=== PATIENT | female | born 1955 | race Two or more races ===

== ENCOUNTER 2021-03-26 03:55 | Inpatient (IN) | payer OTHER ==
[~2021-03-26] VITALS: Ht 152.4 cm; Wt 95.2 kg
[2021-03-26 05:35] LABS: Albumin 2.6 g/dL (3.4-5.0); Calcium 8.2 mg/dL (8.5-10.1); Magnesium 2.6 mg/dL (1.6-2.6); Potassium 3.8 mmol/L (3.5-5.1)
[2021-03-26 05:41] LABS: BUN/Creatinine Ratio 20.2; Bilirubin, Total 0.3 mg/dL (0.2-1.0); Total Protein 6.7 g/dL (6.4-8.2)
[2021-03-26 05:47] LABS: Basophils # (auto) 0.1 10 ^3/uL (0-0.2); Basophils % (auto) 0.6 % (0.0-2.0); Eosinophils # (auto) 0.1 10 ^3/uL (0-0.8); Eosinophils % (auto) 1.3 % (0.0-7.0); Hematocrit 32.5 % (36.0-46.0); Hemoglobin 10.5 g/dL (12.2-16.2); Lymphocytes # (auto) 0.8 10 ^3/uL (0.4-5.4); Lymphocytes % (auto) 9.3 % (10.0-50.0); Mean Corpuscular Hemoglobin 28.1 pg (28.0-32.0); Mean Corpuscular Hgb Conc. 32.4 g/dL (32.0-36.0); Mean Corpuscular Volume 86.9 fL (80.0-100.0); Monocytes # (auto) 0.5 10 ^3/uL (0-1.3); Monocytes % (auto) 5.1 % (0.0-12.0); Neutrophils # (auto) 7.6 10 ^3/uL (1.6-8.6); Neutrophils % (auto) 83.7 % (37.0-80.0); Red Blood Cells 3.74 10^6/uL (4.0-5.20); Red Cell Distribution Width 14.3 % (11.8-14.3)
[2021-03-26] MEDS ORDERED: DOPamine 1600MCG/ML D5W 250 ML IV ONE (07:30)
[2021-03-26] MEDS ORDERED: SODIUM CHLORIDE 0.9% 1,000 ML IV ONE (07:30)
[2021-03-26 07:59] LABS: Urine Bacteria FEW /hpf (None Seen); Urine Blood Negative /uL (Negative); Urine Hyaline Cast FEW /lpf (0 - 2); Urine Mucus FEW (None Seen); Urine Specific Gravity 1.014 (1.001-1.035); Urine WBC 36 /hpf (0 - 5)
[2021-03-26 08:21] LABS: Alcohol, Urine < 3.0 mg/dL (0-10); Amphetamine Screen, Urine NEGATIVE (NEGATIVE); Barbiturate Scree,Urine NEGATIVE (NEGATIVE); Benzodiazephine Screen, Urine NEGATIVE (NEGATIVE); Cannabinoid Screen, Urine POSITIVE (NEGATIVE); Cocaine Screen, Urine NEGATIVE (NEGATIVE); Phencyclidine Screen, Urine NEGATIVE (NEGATIVE)
[2021-03-26 08:28] LABS: Opiate Scree,Urine NEGATIVE (NEGATIVE)
[2021-03-26] MEDS ORDERED: FUROSEMIDE 100 MG/10ML VIAL IV ONE (13:00)
[2021-03-26] MEDS ORDERED: NITROGLYCERIN 0.4 MG SL TAB SL PRN ×2 (13:00→13:45)
[2021-03-26] MEDS ORDERED: MORPHINE SULFATE INJECTION 2 MG/ML SYRG IV PRN ×3 (13:00→13:45)
[2021-03-26] MEDS ORDERED: DOCUSATE SOD 100 MG CAP PO PRN (13:45)
[2021-03-26] MEDS ORDERED: FAMOTIDINE (10MG/ML) 2ML VL IV ONE (13:45)
[2021-03-26] MEDS ORDERED: diphenhdrAMINE HCL 25 MG CAP PO PRN (13:45)
[2021-03-26] MEDS ORDERED: HYDROcodone-ACET 5/325MG TAB PO PRN (13:45)
[2021-03-26] MEDS ORDERED: ALUM & MAG HYDROX-SIMETH LIQ(MAALOX) 30 ML PO PRN (13:45)
[2021-03-26] MEDS ORDERED: ENOXAPARIN SOD 40 MG/0.4 ML SYRINGE SC ONE (13:45)
[2021-03-26] MEDS ORDERED: IPRATROPIUM BROM 0.5 MG/2.5ML INH SOL NEB ONE (13:45)
[2021-03-26] MEDS ORDERED: DEXTROSE (50%) 50ML SYRG IV PRN (13:45)
[2021-03-26] MEDS ORDERED: LORazepam 0.5 MG TAB PO PRN (13:45)
[2021-03-26] MEDS ORDERED: BENAZEPRIL HCL 10 MG TAB PO ONE (13:45)
[2021-03-26] MEDS ORDERED: ALBUTEROL SULF 2.5 MG/0.5ML(0.5%) NEB SOLN NEB ONE (13:45)
[2021-03-26] MEDS ORDERED: ONDANSETRON HCL 4 MG/2 ML VIAL IV PRN (13:45)
[2021-03-26] MEDS ORDERED: levoFLOXacin 500MG 100 ML IV ONE (13:45)
[2021-03-26] MEDS ORDERED: ALBU108A5 INH (14:29)
[2021-03-26] MEDS ORDERED: FLUT250M2 IN (14:29)
[2021-03-26] MEDS ORDERED: LORA1TAB23 PO (14:37)
[2021-03-26 14:50] VITALS: BP 175/98
[2021-03-26 14:56] LABS: Cholesterol 151 mg/dL (< 200); HDL Cholesterol 86 mg/dL (40-59); LDL Cholesterol 55 mg/dL (< 100); Triglycerides 79 mg/dL (< 150)
[2021-03-26] MEDS ORDERED: ALBU0.08 NEB (14:59)
[2021-03-26] MEDS ORDERED: TOPI1CAP24 PO (15:02)
[2021-03-26] MEDS ORDERED: HYDR50CA2 PO (15:02)
[2021-03-26] MEDS ORDERED: PANT40T PO (15:02)
[2021-03-26] MEDS ORDERED: HYDR200T36 PO (15:02)
[2021-03-26] MEDS ORDERED: HYDR-4072 PO (15:02)
[2021-03-26] MEDS ORDERED: MECL1TAB42 PO (15:02)
[2021-03-26] MEDS ORDERED: AMLO-483 PO (15:05)
[2021-03-26] MEDS ORDERED: ALLO100T PO (15:05)
[2021-03-26] MEDS ORDERED: BENA40TA8 PO (15:05)
[2021-03-26] MEDS ORDERED: PARO30TA99 PO (15:05)
[2021-03-26] MEDS ORDERED: LEVE100020 PO (15:05)
[2021-03-26] MEDS ORDERED: FUR20T PO (15:05)
[2021-03-26] MEDS ORDERED: SIMV-8 PO (15:05)
[2021-03-26] MEDS ORDERED: AMIT1TAB41 PO (15:05)
[2021-03-26] MEDS ORDERED: OXYB10TA14 PO (15:05)
[2021-03-26] MEDS ORDERED: LEVO100T8 PO (15:05)
[2021-03-26] MEDS ORDERED: ATEN50TA PO (15:05)
[2021-03-26] MEDS ORDERED: OPTISON 3ml Vial for INJ IV ONE ×2 (15:26→15:30)
[2021-03-26] MEDS: methylPREDNISolone SOD SUCC 40 MG/ML VL IV SCH ×2 (16:09→21:37)
[2021-03-26] MEDS: SODIUM CHLOR 0.9% PF (SALINE LOCK) 10ML VIAL/SYR IV SCH ×2 (16:09→21:37)
[2021-03-26 17:00] VITALS: BP 156/93
[2021-03-26] MEDS: ACCU-CHEK COMFORT CURVE STRIP VI SCH ×2 (17:00→21:37)
[2021-03-26] MEDS: InsuLIN REG 1unit/0.01ml Soln (100units/ml) SC SCH ×2 (17:00→21:47)
[2021-03-26] MEDS: FUROSEMIDE 40 MG/4 ML VIAL IV SCH (18:00)
[2021-03-26] MEDS: IPRATROPIUM BROM 0.5 MG/2.5ML INH SOL NEB SCH ×2 (19:20→22:00)
[2021-03-26] MEDS: ALBUTEROL SULF 2.5 MG/0.5ML(0.5%) NEB SOLN NEB SCH ×2 (19:20→22:00)
[2021-03-26 20:35] VITALS: BP 171/71
[2021-03-26] MEDS: hydrALAZINE HCL 20 MG/ML VL IV PRN (20:36)
[2021-03-26] MEDS ORDERED: LEVE250T18 PO (21:14)
[2021-03-26] MEDS ORDERED: HYDR-4188 PO (21:14)
[2021-03-26] MEDS ORDERED: FESO8TAB PO (21:14)
[2021-03-26] MEDS: levETIRAcetam 500 MG TAB PO SCH (21:34)
[2021-03-26] MEDS: ATORVASTATIN 20 MG TAB PO SCH (21:35)
[2021-03-26] MEDS: AMITRIPTYLINE HCL 25 MG TAB PO SCH (21:36)
[2021-03-26] MEDS: FAMOTIDINE (10MG/ML) 2ML VL IV SCH (21:37)
[2021-03-27] VITALS (9 sets, daily range): BP systolic 124–161; BP diastolic 61–96
[2021-03-27] MEDS: IPRATROPIUM BROM 0.5 MG/2.5ML INH SOL NEB SCH ×2 (02:25→07:24)
[2021-03-27] MEDS: ALBUTEROL SULF 2.5 MG/0.5ML(0.5%) NEB SOLN NEB SCH ×2 (02:26→07:24)
[2021-03-27] MEDS: SODIUM CHLOR 0.9% PF (SALINE LOCK) 10ML VIAL/SYR IV SCH ×3 (05:52→21:52)
[2021-03-27] MEDS: FUROSEMIDE 40 MG/4 ML VIAL IV SCH ×2 (06:07→16:57)
[2021-03-27] MEDS: methylPREDNISolone SOD SUCC 40 MG/ML VL IV SCH (06:08)
[2021-03-27] MEDS: hydrALAZINE HCL 20 MG/ML VL IV PRN ×2 (06:08→12:43)
[2021-03-27] MEDS: InsuLIN REG 1unit/0.01ml Soln (100units/ml) SC SCH ×4 (06:30→21:52)
[2021-03-27] MEDS: ACCU-CHEK COMFORT CURVE STRIP VI SCH ×4 (06:31→21:45)
[2021-03-27 06:53] LABS: Basophils # (auto) 0 10 ^3/uL (0-0.2); Basophils % (auto) 0.3 % (0.0-2.0); Eosinophils # (auto) 0 10 ^3/uL (0-0.8); Hematocrit 36.9 % (36.0-46.0); Hemoglobin 11.9 g/dL (12.2-16.2); Lymphocytes # (auto) 0.4 10 ^3/uL (0.4-5.4); Mean Corpuscular Hemoglobin 28.1 pg (28.0-32.0); Mean Corpuscular Hgb Conc. 32.3 g/dL (32.0-36.0); Monocytes # (auto) 0.1 10 ^3/uL (0-1.3); Monocytes % (auto) 1.5 % (0.0-12.0); Neutrophils # (auto) 7.5 10 ^3/uL (1.6-8.6); Neutrophils % (auto) 93.2 % (37.0-80.0); Nucleated Red Blood Cells % 0.1 %; Red Blood Cells 4.24 10^6/uL (4.0-5.20); Red Cell Distribution Width 14.1 % (11.8-14.3); White Blood Cell 8.1 10^3/uL (4.4-10.8)
[2021-03-27] MEDS ORDERED: LEVOTHYROXINE SODIUM 100 MCG TAB PO SCH (07:00)
[2021-03-27 07:02] LABS: INR 1.12 (0.9-1.15); Partial Thromboplastin Time 30.1 sec (23.6-33.0)
[2021-03-27 07:10] LABS: Potassium 3.7 mmol/L (3.5-5.1)
[2021-03-27 07:23] LABS: Albumin 2.7 g/dL (3.4-5.0); BUN/Creatinine Ratio 19.3; Bilirubin, Total 0.4 mg/dL (0.2-1.0); Calcium 8.4 mg/dL (8.5-10.1); Magnesium 2.1 mg/dL (1.6-2.6); Phosphorus 3.5 mg/dL (2.5-4.90); Total Protein 7.5 g/dL (6.4-8.2); Uric Acid 5.4 mg/dL (2.6-6.0)
[2021-03-27] MEDS: FAMOTIDINE (10MG/ML) 2ML VL IV SCH (09:34)
[2021-03-27] MEDS: levETIRAcetam 500 MG TAB PO SCH ×2 (09:35→21:51)
[2021-03-27] MEDS: ASPirin 81 mg TAB PO SCH (09:35)
[2021-03-27] MEDS: ENOXAPARIN SOD 40 MG/0.4 ML SYRINGE SC SCH (09:40)
[2021-03-27] MEDS: levoFLOXacin 500MG 100 ML IV SCH (09:40)
[2021-03-27] MEDS ORDERED: BENAZEPRIL HCL 10 MG TAB PO SCH (10:00)
[2021-03-27] MEDS ORDERED: ALBUTEROL SULF 2.5 MG/0.5ML(0.5%) NEB SOLN NEB PRN (10:30)
[2021-03-27] MEDS ORDERED: hydrOXYchloroQUINE SULFATE 200 MG TAB PO ONE (11:15)
[2021-03-27] MEDS ORDERED: LIDOCAINE 2%HCL (LOCAL ANESTH.) INJ 20ML MDV ONE (13:40)
[2021-03-27] MEDS ORDERED: MIDAZOLAM HCL 2MG/2ML 2ml VIAL (1mg/ml) ONE (13:44)
[2021-03-27] MEDS ORDERED: HEPARIN SODIUM (PORCINE) 5000 UNITS/ML 1ML VIAL ONE (13:44)
[2021-03-27] MEDS ORDERED: VERAPAMIL 2.5MG/ML INJ 2ML VIAL IV ONE (13:44)
[2021-03-27] MEDS ORDERED: SODIUM CHL 0.9% 50 ML ONE (13:44)
[2021-03-27] MEDS ORDERED: fentaNYL CITRATE 100 MCG/2 ML VL ONE (13:44)
[2021-03-27] MEDS ORDERED: ANGIOMAX 250 MG VIAL IV ONE (13:44)
[2021-03-27] MEDS ORDERED: IODIXANOL 320MG/ML 100ML BTL IV ONE (14:10)
[2021-03-27] MEDS ORDERED: ATROPINE SULF 1 MG/10ml SYR ONE (14:30)
[2021-03-27] MEDS ORDERED: EPINEPHrine HCL 1 MG/10 ML SYRG ONE (14:31)
[2021-03-27] MEDS ORDERED: ASPirin 325 MG TAB ONE (14:39)
[2021-03-27] MEDS ORDERED: CLOPIDOGREL 300 MG TAB ONE (14:39)
[2021-03-27] MEDS: ACETAMINOPHEN 325 MG TAB PO PRN (16:57)
[2021-03-27] MEDS: SACUBITRIL-VALSARTAN 24mg/26mg TAB PO SCH (21:50)
[2021-03-27] MEDS: ATORVASTATIN 20 MG TAB PO SCH (21:51)
[2021-03-27] MEDS: POTASSIUM CHL 20 Meq TABLET PO SCH (21:51)
[2021-03-27] MEDS: AMITRIPTYLINE HCL 25 MG TAB PO SCH (21:52)
[2021-03-27] MEDS: hydrOXYchloroQUINE SULFATE 200 MG TAB PO SCH (21:56)
[2021-03-28 05:09] VITALS: BP 128/75
[2021-03-28] MEDS: FUROSEMIDE 40 MG/4 ML VIAL IV SCH ×2 (06:28→17:39)
[2021-03-28] MEDS: SODIUM CHLOR 0.9% PF (SALINE LOCK) 10ML VIAL/SYR IV SCH ×3 (06:28→22:09)
[2021-03-28] MEDS: ACCU-CHEK COMFORT CURVE STRIP VI SCH ×4 (06:28→22:09)
[2021-03-28] MEDS: LEVOTHYROXINE SODIUM 88 MCG TAB PO SCH (06:28)
[2021-03-28] MEDS: InsuLIN REG 1unit/0.01ml Soln (100units/ml) SC SCH ×4 (06:30→22:10)
[2021-03-28 06:55] LABS: Calcium 8.7 mg/dL (8.5-10.1); Potassium 3.3 mmol/L (3.5-5.1)
[2021-03-28 06:58] LABS: BUN/Creatinine Ratio 24.4
[2021-03-28 09:00] VITALS: BP 127/74
[2021-03-28] MEDS ORDERED: hydrOXYchloroQUINE SULFATE 200 MG TAB PO SCH (10:00)
[2021-03-28] MEDS: levoFLOXacin 500MG 100 ML IV SCH (10:24)
[2021-03-28] MEDS: ASPirin 81 mg TAB PO SCH (10:25)
[2021-03-28] MEDS: SACUBITRIL-VALSARTAN 24mg/26mg TAB PO SCH ×2 (10:25→21:46)
[2021-03-28] MEDS: HCTZ 25 MG TAB PO SCH (10:26)
[2021-03-28] MEDS: POTASSIUM CHL 20 Meq TABLET PO SCH ×2 (10:26→21:47)
[2021-03-28] MEDS: levETIRAcetam 500 MG TAB PO SCH ×2 (10:26→21:49)
[2021-03-28] MEDS: hydrOXYchloroQUINE SULFATE 200 MG TAB PO SCH ×2 (10:27→21:49)
[2021-03-28] MEDS: PARoxetine 20 MG TAB PO SCH (10:27)
[2021-03-28] MEDS: CLOPIDOGREL BISULFATE 75 MG TAB PO SCH (10:27)
[2021-03-28] MEDS: FAMOTIDINE 20 MG TAB PO SCH (10:27)
[2021-03-28] MEDS: ALLOPURINOL 100 MG TAB PO SCH (10:28)
[2021-03-28] MEDS: ENOXAPARIN SOD 40 MG/0.4 ML SYRINGE SC SCH (10:28)
[2021-03-28 13:00] VITALS: BP 133/79
[2021-03-28] MEDS: ACETAMINOPHEN 325 MG TAB PO PRN (15:29)
[2021-03-28 17:00] VITALS: BP 134/68
[2021-03-28] MEDS: ATORVASTATIN 20 MG TAB PO SCH (21:47)
[2021-03-28] MEDS: AMITRIPTYLINE HCL 25 MG TAB PO SCH (21:48)
[2021-03-28 22:00] VITALS: BP 98/56
[2021-03-28 22:07] VITALS: BP 114/69
[2021-03-29 05:00] VITALS: BP 116/76
[2021-03-29] MEDS: FUROSEMIDE 40 MG/4 ML VIAL IV SCH (06:48)
[2021-03-29] MEDS: SODIUM CHLOR 0.9% PF (SALINE LOCK) 10ML VIAL/SYR IV SCH ×2 (06:48→14:06)
[2021-03-29] MEDS: LEVOTHYROXINE SODIUM 88 MCG TAB PO SCH (06:48)
[2021-03-29] MEDS: ACCU-CHEK COMFORT CURVE STRIP VI SCH ×2 (06:49→11:45)
[2021-03-29] MEDS: InsuLIN REG 1unit/0.01ml Soln (100units/ml) SC SCH ×2 (06:49→11:45)
[2021-03-29 08:36] VITALS: BP 103/70
[2021-03-29] MEDS: HCTZ 25 MG TAB PO SCH (10:00)
[2021-03-29] MEDS: SACUBITRIL-VALSARTAN 24mg/26mg TAB PO SCH (10:05)
[2021-03-29] MEDS: levETIRAcetam 500 MG TAB PO SCH (10:05)
[2021-03-29] MEDS: levoFLOXacin 500MG 100 ML IV SCH (10:05)
[2021-03-29] MEDS: ASPirin 81 mg TAB PO SCH (10:05)
[2021-03-29] MEDS: hydrOXYchloroQUINE SULFATE 200 MG TAB PO SCH (10:06)
[2021-03-29] MEDS: PARoxetine 20 MG TAB PO SCH (10:06)
[2021-03-29] MEDS: FAMOTIDINE 20 MG TAB PO SCH (10:06)
[2021-03-29] MEDS: POTASSIUM CHL 20 Meq TABLET PO SCH (10:06)
[2021-03-29] MEDS: CLOPIDOGREL BISULFATE 75 MG TAB PO SCH (10:07)
[2021-03-29] MEDS: ALLOPURINOL 100 MG TAB PO SCH (10:07)
[2021-03-29] MEDS: ENOXAPARIN SOD 40 MG/0.4 ML SYRINGE SC SCH (10:07)
[2021-03-29 10:18] VITALS: BP 103/70
[2021-03-29 13:00] VITALS: BP 123/68
== END 2021-03-29 15:13 | disposition home or self-care (01) | DRG 246 ==
LOC: ER 03:55 → TELE 12:48 → TELE-CENTR 14:37
PROVIDERS: ADMIT Hospitalist; ATTEND Internal Medicine
PROC: 05HB33Z Insertion of Infusion Device into Right Basilic Vein, Percutaneous Approach (ICD-10-PCS; 2021-03-26)
PROC: B54MZZA Ultrasonography of Right Upper Extremity Veins, Guidance (ICD-10-PCS; 2021-03-26)
PROC: 027035Z Dilation of Coronary Artery, One Artery with Two Drug-eluting Intraluminal Devices, Percutaneous Approach (ICD-10-PCS; principal; 2021-03-27)
PROC: 4A023N7 Measurement of Cardiac Sampling and Pressure, Left Heart, Percutaneous Approach (ICD-10-PCS; 2021-03-27)
PROC: B211YZZ Fluoroscopy of Multiple Coronary Arteries using Other Contrast (ICD-10-PCS; 2021-03-27)
PROC: B215YZZ Fluoroscopy of Left Heart using Other Contrast (ICD-10-PCS; 2021-03-27)
DX: I21.4 Non-ST elevation (NSTEMI) myocardial infarction (principal); J96.21 Acute and chronic respiratory failure with hypoxia; I50.23 Acute on chronic systolic (congestive) heart failure; G93.41 Metabolic encephalopathy; J18.9 Pneumonia, unspecified organism; E44.0 Moderate protein-calorie malnutrition; J45.901 Unspecified asthma with (acute) exacerbation; I42.9 Cardiomyopathy, unspecified; J44.1 Chronic obstructive pulmonary disease with (acute) exacerbation; J44.0 Chronic obstructive pulmonary disease with (acute) lower respiratory infection; N39.0 Urinary tract infection, site not specified; I16.9 Hypertensive crisis, unspecified; Z68.41 Body mass index [BMI] 40.0-44.9, adult; I27.21 Secondary pulmonary arterial hypertension; I11.0 Hypertensive heart disease with heart failure; D64.9 Anemia, unspecified; R55 Syncope and collapse; F32.9 Major depressive disorder, single episode, unspecified; E11.9 Type 2 diabetes mellitus without complications; M1A.9XX0 Chronic gout, unspecified, without tophus (tophi); E03.9 Hypothyroidism, unspecified; E66.01 Morbid (severe) obesity due to excess calories; E78.5 Hyperlipidemia, unspecified; F12.90 Cannabis use, unspecified, uncomplicated; F17.200 Nicotine dependence, unspecified, uncomplicated; F41.9 Anxiety disorder, unspecified; G40.909 Epilepsy, unspecified, not intractable, without status epilepticus; M32.9 Systemic lupus erythematosus, unspecified; Z99.81 Dependence on supplemental oxygen; G43.909 Migraine, unspecified, not intractable, without status migrainosus; M19.90 Unspecified osteoarthritis, unspecified site; R00.1 Bradycardia, unspecified; R32 Unspecified urinary incontinence; Z20.822 Contact with and (suspected) exposure to COVID-19; Z79.02 Long term (current) use of antithrombotics/antiplatelets; Z79.82 Long term (current) use of aspirin; Z91.81 History of falling
CPT/HCPCS: 36415; 51702; 70450; 71045; 80048; 80053; 80061; 80307; 81001; 82962; 83036; 83735; 83880; 84100; 84443; 84484; 84550; 85025; 85379; 85610; 85730; 87040; 87086; 87426; 93005; 93306; 93886; 94640; 96361; 96374; 97162; 99152; 99153; 99291; C1874; G0378; J1815; J1956; J2250; J3490; Q9956; Q9967

== ENCOUNTER 2021-07-28 12:30 | Inpatient (IN) | payer OTHER ==
[~2021-07-28] VITALS: Ht 154.9 cm; Wt 94.3 kg
[~2021-07-28 12:30] MED LIST: ALBU0.08 NEB; ALBU108A5 INH; ALLO100T PO; AMIT1TAB41 PO; AMLO-483 PO; ATEN50TA PO; BENA40TA8 PO; FESO8TAB PO; FLUT250M2 IN; FUR20T PO; HYDR-4072 PO; HYDR-4188 PO; HYDR200T36 PO; HYDR50CA2 PO; LEVE100020 PO; LEVE250T18 PO; LEVO100T8 PO; LORA1TAB23 PO; MECL1TAB42 PO; OXYB10TA14 PO; PANT40T PO; PARO30TA99 PO; SIMV-8 PO; TOPI1CAP24 PO
[2021-07-28 14:51] LABS: Basophils # (auto) 0.1 10 ^3/uL (0-0.2); Basophils % (auto) 0.8 % (0.0-2.0); Eosinophils # (auto) 0.2 10 ^3/uL (0-0.8); Eosinophils % (auto) 2.2 % (0.0-7.0); Hematocrit 38.3 % (36.0-46.0); Hemoglobin 12.5 g/dL (12.2-16.2); Lymphocytes # (auto) 1.9 10 ^3/uL (0.4-5.4); Lymphocytes % (auto) 23.5 % (10.0-50.0); Mean Corpuscular Hemoglobin 27.9 pg (28.0-32.0); Mean Corpuscular Hgb Conc. 32.6 g/dL (32.0-36.0); Mean Corpuscular Volume 85.8 fL (80.0-100.0); Monocytes # (auto) 0.6 10 ^3/uL (0-1.3); Monocytes % (auto) 6.8 % (0.0-12.0); Neutrophils # (auto) 5.5 10 ^3/uL (1.6-8.6); Neutrophils % (auto) 66.7 % (37.0-80.0); Nucleated Red Blood Cells % 0.2 %; Red Blood Cells 4.46 10^6/uL (4.0-5.20); Red Cell Distribution Width 14.1 % (11.8-14.3); White Blood Cell 8.2 10^3/uL (4.4-10.8)
[2021-07-28 15:01] LABS: Albumin 3.3 g/dL (3.4-5.0); BUN/Creatinine Ratio 17.5; Calcium 9.1 mg/dL (8.5-10.1); Potassium 4.1 mmol/L (3.5-5.1)
[2021-07-28 15:05] LABS: Magnesium 2.1 mg/dL (1.6-2.6)
[2021-07-28 15:11] LABS: Bilirubin, Total 0.2 mg/dL (0.2-1.0); Total Protein 7.7 g/dL (6.4-8.2)
[2021-07-28 16:34] LABS: Urine Bacteria NONE SEEN /hpf (None Seen); Urine Blood Negative /uL (Negative); Urine Mucus FEW (None Seen); Urine Specific Gravity 1.007 (1.001-1.035); Urine WBC 1 /hpf (0 - 5)
[2021-07-28] MEDS ORDERED: ASPirin 325 MG TAB PO ONE (17:00)
[2021-07-28] MEDS ORDERED: hydrALAZINE HCL 20 MG/ML VL IV ONE (17:45)
[2021-07-28] MEDS ORDERED: MORPHINE SULFATE INJECTION 2 MG/ML SYRG IV PRN (17:45)
[2021-07-28] MEDS ORDERED: NITROGLYCERIN 0.4 MG SL TAB SL PRN (17:45)
[2021-07-28] MEDS ORDERED: BUMETANIDE 2.5mg/10ml (0.25 mg/ml) INJ IV ONE (18:00)
[2021-07-28] MEDS ORDERED: NIFEdipine ER 30 MG TAB PO ONE (19:15)
[2021-07-28] MEDS ORDERED: ONDANSETRON HCL 4 MG/2 ML VIAL IV PRN (19:15)
[2021-07-28] MEDS ORDERED: METOPROLOL SUCCINATE XL 50 MG TAB PO ONE (19:15)
[2021-07-28] MEDS ORDERED: MULTIPLE VITAMINS W/ MINERALS TAB PO ONE (19:15)
[2021-07-28] MEDS ORDERED: DOCUSATE SOD 100 MG CAP PO PRN (19:15)
[2021-07-28] MEDS ORDERED: ALBUTEROL SULF 2.5 MG/0.5ML(0.5%) NEB SOLN NEB ONE (19:15)
[2021-07-28] MEDS ORDERED: hydrALAZINE HCL 20 MG/ML VL IV PRN (19:15)
[2021-07-28] MEDS ORDERED: ASPirin 81 mg TAB PO ONE (19:15)
[2021-07-28] MEDS ORDERED: DEXTROSE (50%) 50ML SYRG IV PRN (19:15)
[2021-07-28] MEDS ORDERED: LACTULOSE 20Gm/30ML SOLN PO PRN (19:15)
[2021-07-28] MEDS ORDERED: FOLIC ACID 1 MG TAB PO ONE (19:15)
[2021-07-28] MEDS ORDERED: BENAZEPRIL HCL 10 MG TAB PO ONE (19:15)
[2021-07-28] MEDS ORDERED: BUDESONIDE (INHALATION) 0.5 MG/2 ML NEB NEB ONE (19:15)
[2021-07-28] MEDS ORDERED: IPRATROPIUM BROM 0.5 MG/2.5ML INH SOL NEB ONE (19:15)
[2021-07-28] MEDS ORDERED: SUCRALFATE 1 GM/10 ML ORAL SUSP PO ONE (19:15)
[2021-07-28] MEDS ORDERED: CLOPIDOGREL BISULFATE 75 MG TAB PO ONE (19:15)
[2021-07-28] MEDS ORDERED: AZITHROMYCIN 500MG/ 250ML 250 ML IV ONE (19:45)
[2021-07-28 20:45] VITALS: BP 161/84
[2021-07-28] MEDS: ALBUTEROL SULF 2.5 MG/0.5ML(0.5%) NEB SOLN NEB PRN (21:50)
[2021-07-28] MEDS: IPRATROPIUM BROM 0.5 MG/2.5ML INH SOL NEB SCH (21:50)
[2021-07-28] MEDS: BUDESONIDE (INHALATION) 0.5 MG/2 ML NEB NEB SCH (21:50)
[2021-07-28] MEDS ORDERED: ADVAIR DISKUS 250/50 INHALER IN SCH (22:00)
[2021-07-28] MEDS: hydrOXYzine 25 MG TAB or CAP PO SCH (22:45)
[2021-07-28] MEDS: ATORVASTATIN 20 MG TAB PO SCH (22:46)
[2021-07-28] MEDS: LORazepam 0.5 MG TAB PO SCH (22:46)
[2021-07-28] MEDS: SUCRALFATE 1 GM/10 ML ORAL SUSP PO SCH (22:47)
[2021-07-28] MEDS: MECLIZINE HCL 25 MG TAB PO SCH (22:47)
[2021-07-28] MEDS: PANTOPRAZOLE 40 MG TAB PO SCH (22:48)
[2021-07-28] MEDS: hydrOXYchloroQUINE SULFATE 200 MG TAB PO SCH (22:48)
[2021-07-28] MEDS: levETIRAcetam 500 MG TAB PO SCH (22:48)
[2021-07-28] MEDS: HYDROcodone-ACET 10/325MG TAB PO SCH (22:49)
[2021-07-28] MEDS: AMITRIPTYLINE 100 MG PO SCH (22:51)
[2021-07-28] MEDS: InsuLIN REG 1unit/0.01ml Soln (100units/ml) SC SCH (23:00)
[2021-07-28] MEDS: ACCU-CHEK COMFORT CURVE STRIP VI SCH (23:00)
[2021-07-29] VITALS: BP 161/84
[2021-07-29] MEDS: IPRATROPIUM BROM 0.5 MG/2.5ML INH SOL NEB SCH ×6 (01:50→22:16)
[2021-07-29] MEDS: ALBUTEROL SULF 2.5 MG/0.5ML(0.5%) NEB SOLN NEB PRN ×3 (01:51→22:16)
[2021-07-29 05:00] VITALS: BP 107/66
[2021-07-29] MEDS: MECLIZINE HCL 25 MG TAB PO SCH ×3 (05:53→22:18)
[2021-07-29] MEDS: HYDROcodone-ACET 10/325MG TAB PO SCH ×3 (05:55→22:19)
[2021-07-29] MEDS ORDERED: BUMETANIDE 2.5mg/10ml (0.25 mg/ml) INJ IV SCH (06:00)
[2021-07-29] MEDS: LEVOTHYROXINE SODIUM 100 MCG TAB PO SCH (06:01)
[2021-07-29] MEDS: SUCRALFATE 1 GM/10 ML ORAL SUSP PO SCH ×4 (06:01→22:17)
[2021-07-29] MEDS: InsuLIN REG 1unit/0.01ml Soln (100units/ml) SC SCH ×4 (06:12→22:00)
[2021-07-29] MEDS: ACCU-CHEK COMFORT CURVE STRIP VI SCH ×4 (06:12→22:19)
[2021-07-29 06:17] LABS: Basophils # (auto) 0.1 10 ^3/uL (0-0.2); Basophils % (auto) 0.7 % (0.0-2.0); Eosinophils # (auto) 0.1 10 ^3/uL (0-0.8); Eosinophils % (auto) 1.3 % (0.0-7.0); Hematocrit 36.3 % (36.0-46.0); Lymphocytes # (auto) 1.3 10 ^3/uL (0.4-5.4); Lymphocytes % (auto) 18.1 % (10.0-50.0); Mean Corpuscular Hemoglobin 28.2 pg (28.0-32.0); Mean Corpuscular Hgb Conc. 33.1 g/dL (32.0-36.0); Monocytes # (auto) 0.6 10 ^3/uL (0-1.3); Neutrophils # (auto) 5.3 10 ^3/uL (1.6-8.6); Neutrophils % (auto) 71.9 % (37.0-80.0); Nucleated Red Blood Cells % 0.1 %; Red Blood Cells 4.28 10^6/uL (4.0-5.20); Red Cell Distribution Width 13.9 % (11.8-14.3); White Blood Cell 7.4 10^3/uL (4.4-10.8)
[2021-07-29 06:26] LABS: INR 1.07 (0.9-1.15); Partial Thromboplastin Time 28.9 sec (23.6-33.0)
[2021-07-29 06:30] LABS: Potassium 3.5 mmol/L (3.5-5.1)
[2021-07-29 06:45] LABS: Albumin 2.9 g/dL (3.4-5.0); Bilirubin, Total 0.3 mg/dL (0.2-1.0); CRP High Sensitivity 1.83 mg/dL (< 0.3); Calcium 8.7 mg/dL (8.5-10.1); Magnesium 2.6 mg/dL (1.6-2.6); Phosphorus 4.8 mg/dL (2.5-4.90); Uric Acid 6.6 mg/dL (2.6-6.0)
[2021-07-29] MEDS: BUDESONIDE (INHALATION) 0.5 MG/2 ML NEB NEB SCH ×2 (07:29→18:38)
[2021-07-29 08:17] VITALS: BP 104/50
[2021-07-29] MEDS: NIFEdipine ER 30 MG TAB PO SCH (10:00)
[2021-07-29] MEDS: TOVIAZ 8 MG PO SCH (10:00)
[2021-07-29] MEDS: BENAZEPRIL HCL 10 MG TAB PO SCH (10:00)
[2021-07-29] MEDS: AMITRIPTYLINE 100 MG PO SCH ×2 (10:00→22:00)
[2021-07-29] MEDS: TROKENDI 200 MG PO SCH (10:00)
[2021-07-29] MEDS: OXYBUTININ PO SCH (10:00)
[2021-07-29] MEDS: METOPROLOL SUCCINATE XL 50 MG TAB PO SCH (10:00)
[2021-07-29] MEDS: ENOXAPARIN SOD 40 MG/0.4 ML SYRINGE SC SCH (10:07)
[2021-07-29] MEDS: AZITHROMYCIN 500MG/ 250ML 250 ML IV SCH (10:09)
[2021-07-29] MEDS: FOLIC ACID 1 MG TAB PO SCH (10:10)
[2021-07-29] MEDS: ASPirin 81 mg TAB PO SCH (10:11)
[2021-07-29] MEDS: ALLOPURINOL 100 MG TAB PO SCH (10:11)
[2021-07-29] MEDS: CLOPIDOGREL BISULFATE 75 MG TAB PO SCH (10:11)
[2021-07-29] MEDS: levETIRAcetam 500 MG TAB PO SCH ×2 (10:12→22:19)
[2021-07-29] MEDS: MULTIPLE VITAMINS W/ MINERALS TAB PO SCH (10:12)
[2021-07-29] MEDS: LORazepam 0.5 MG TAB PO SCH ×2 (10:12→22:19)
[2021-07-29] MEDS: CHOLECALCIFEROL (VITD3) 2,000 UNIT CAP/TAB PO SCH (10:12)
[2021-07-29] MEDS: hydrOXYchloroQUINE SULFATE 200 MG TAB PO SCH ×2 (10:14→22:19)
[2021-07-29] MEDS: PARoxetine 20 MG TAB PO SCH (10:14)
[2021-07-29 12:45] VITALS: BP 130/53
[2021-07-29 16:00] VITALS: BP 131/59
[2021-07-29] MEDS ORDERED: FUROSEMIDE 20 MG/2 ML VIAL IV SCH (18:00)
[2021-07-29 22:00] VITALS: BP 106/55
[2021-07-29] MEDS: PANTOPRAZOLE 40 MG TAB PO SCH (22:18)
[2021-07-29] MEDS: hydrOXYzine 25 MG TAB or CAP PO SCH (22:18)
[2021-07-29] MEDS: ATORVASTATIN 20 MG TAB PO SCH (22:18)
[2021-07-30] VITALS (7 sets, daily range): BP systolic 115–177; BP diastolic 46–80
[2021-07-30] MEDS: IPRATROPIUM BROM 0.5 MG/2.5ML INH SOL NEB SCH ×6 (02:00→22:41)
[2021-07-30] MEDS: MECLIZINE HCL 25 MG TAB PO SCH ×3 (05:07→23:48)
[2021-07-30] MEDS: FUROSEMIDE 20 MG/2 ML VIAL IV SCH ×2 (05:07→17:02)
[2021-07-30] MEDS: HYDROcodone-ACET 10/325MG TAB PO SCH ×3 (05:08→22:00)
[2021-07-30] MEDS: ALBUTEROL SULF 2.5 MG/0.5ML(0.5%) NEB SOLN NEB PRN ×5 (06:05→22:41)
[2021-07-30 06:14] LABS: Calcium 9.4 mg/dL (8.5-10.1); Potassium 3.5 mmol/L (3.5-5.1)
[2021-07-30 06:16] LABS: BUN/Creatinine Ratio 22.3
[2021-07-30] MEDS: ACCU-CHEK COMFORT CURVE STRIP VI SCH ×4 (06:32→22:00)
[2021-07-30] MEDS: SUCRALFATE 1 GM/10 ML ORAL SUSP PO SCH ×4 (06:32→23:52)
[2021-07-30] MEDS: LEVOTHYROXINE SODIUM 100 MCG TAB PO SCH (06:32)
[2021-07-30] MEDS: InsuLIN REG 1unit/0.01ml Soln (100units/ml) SC SCH ×4 (06:37→23:10)
[2021-07-30] MEDS: AZITHROMYCIN 500MG/ 250ML 250 ML IV SCH (09:52)
[2021-07-30] MEDS: FOLIC ACID 1 MG TAB PO SCH (09:52)
[2021-07-30] MEDS: ALLOPURINOL 100 MG TAB PO SCH (09:52)
[2021-07-30] MEDS: ENOXAPARIN SOD 40 MG/0.4 ML SYRINGE SC SCH (09:52)
[2021-07-30] MEDS: ASPirin 81 mg TAB PO SCH (09:52)
[2021-07-30] MEDS: LORazepam 0.5 MG TAB PO SCH ×2 (09:53→22:00)
[2021-07-30] MEDS: MULTIPLE VITAMINS W/ MINERALS TAB PO SCH (09:53)
[2021-07-30] MEDS: CHOLECALCIFEROL (VITD3) 2,000 UNIT CAP/TAB PO SCH (09:53)
[2021-07-30] MEDS: BENAZEPRIL HCL 10 MG TAB PO SCH (09:55)
[2021-07-30] MEDS: METOPROLOL SUCCINATE XL 50 MG TAB PO SCH (09:55)
[2021-07-30] MEDS: CLOPIDOGREL BISULFATE 75 MG TAB PO SCH (09:55)
[2021-07-30] MEDS: hydrOXYchloroQUINE SULFATE 200 MG TAB PO SCH ×2 (09:56→23:48)
[2021-07-30] MEDS: PARoxetine 20 MG TAB PO SCH (09:56)
[2021-07-30] MEDS: levETIRAcetam 500 MG TAB PO SCH ×2 (09:56→23:48)
[2021-07-30] MEDS: NIFEdipine ER 30 MG TAB PO SCH (09:57)
[2021-07-30] MEDS: TOVIAZ 8 MG PO SCH (10:16)
[2021-07-30] MEDS: TROKENDI 200 MG PO SCH (10:16)
[2021-07-30] MEDS: BUDESONIDE (INHALATION) 0.5 MG/2 ML NEB NEB SCH ×2 (10:16→22:41)
[2021-07-30] MEDS: AMITRIPTYLINE 100 MG PO SCH ×2 (10:18→22:00)
[2021-07-30] MEDS: OXYBUTININ PO SCH (10:19)
[2021-07-30] MEDS ORDERED: AMIT1TAB41 PO (11:56)
[2021-07-30] MEDS ORDERED: DOXY-338 PO (15:24)
[2021-07-30] MEDS ORDERED: FURO1TAB33 PO (15:24)
[2021-07-30] MEDS: hydrOXYzine 25 MG TAB or CAP PO SCH (22:00)
[2021-07-30 22:27] LABS: Basophils # (auto) 0.2 10 ^3/uL (0-0.2); Eosinophils # (auto) 0.1 10 ^3/uL (0-0.8); Eosinophils % (auto) 0.9 % (0.0-7.0); Hematocrit 35.8 % (36.0-46.0); Mean Corpuscular Hemoglobin 28.3 pg (28.0-32.0); Mean Corpuscular Hgb Conc. 33.4 g/dL (32.0-36.0); Mean Corpuscular Volume 84.6 fL (80.0-100.0); Monocytes # (auto) 0.6 10 ^3/uL (0-1.3); Neutrophils # (auto) 7.6 10 ^3/uL (1.6-8.6); Neutrophils % (auto) 80.1 % (37.0-80.0); Red Blood Cells 4.23 10^6/uL (4.0-5.20); White Blood Cell 9.4 10^3/uL (4.4-10.8)
[2021-07-30 22:46] LABS: Calcium 9.2 mg/dL (8.5-10.1); Potassium 3.7 mmol/L (3.5-5.1)
[2021-07-30 22:48] LABS: BUN/Creatinine Ratio 22.1
[2021-07-30] MEDS: ATORVASTATIN 20 MG TAB PO SCH (23:48)
[2021-07-30] MEDS: PANTOPRAZOLE 40 MG TAB PO SCH (23:48)
[2021-07-31 05:00] VITALS: BP 143/83
[2021-07-31] MEDS: HYDROcodone-ACET 10/325MG TAB PO SCH ×3 (05:01→23:13)
[2021-07-31] MEDS: MECLIZINE HCL 25 MG TAB PO SCH ×3 (05:02→23:00)
[2021-07-31] MEDS: FUROSEMIDE 20 MG/2 ML VIAL IV SCH ×2 (05:33→18:07)
[2021-07-31 06:11] LABS: Urine Bacteria NONE SEEN /hpf (None Seen); Urine Blood 3+ /uL (Negative); Urine Specific Gravity 1.019 (1.001-1.035); Urine WBC 2 /hpf (0 - 5)
[2021-07-31] MEDS: SUCRALFATE 1 GM/10 ML ORAL SUSP PO SCH ×4 (06:33→23:00)
[2021-07-31] MEDS: LEVOTHYROXINE SODIUM 100 MCG TAB PO SCH (06:33)
[2021-07-31] MEDS: ACCU-CHEK COMFORT CURVE STRIP VI SCH ×4 (06:43→23:00)
[2021-07-31 06:44] LABS: Alcohol, Urine < 3.0 mg/dL (0-10); Amphetamine Screen, Urine NEGATIVE (NEGATIVE); Barbiturate Scree,Urine NEGATIVE (NEGATIVE); Cannabinoid Screen, Urine POSITIVE (NEGATIVE); Opiate Scree,Urine NEGATIVE (NEGATIVE); Phencyclidine Screen, Urine NEGATIVE (NEGATIVE)
[2021-07-31] MEDS: InsuLIN REG 1unit/0.01ml Soln (100units/ml) SC SCH ×4 (06:44→23:00)
[2021-07-31 06:52] LABS: Benzodiazephine Screen, Urine NEGATIVE (NEGATIVE); Cocaine Screen, Urine NEGATIVE (NEGATIVE)
[2021-07-31 07:08] LABS: Protein, Urine 46.4 mg/dL (0.0-11.9)
[2021-07-31] MEDS: IPRATROPIUM BROM 0.5 MG/2.5ML INH SOL NEB SCH ×4 (07:17→18:12)
[2021-07-31 08:00] VITALS: BP 126/59
[2021-07-31] MEDS ORDERED: LEVO500T31 PO (08:34)
[2021-07-31] MEDS: cefTRIAXone 1GM/50ML D5W 50 ML IV SCH (09:53)
[2021-07-31] MEDS: MULTIPLE VITAMINS W/ MINERALS TAB PO SCH (09:53)
[2021-07-31] MEDS: FOLIC ACID 1 MG TAB PO SCH (09:53)
[2021-07-31] MEDS: ALLOPURINOL 100 MG TAB PO SCH (09:53)
[2021-07-31] MEDS: CLOPIDOGREL BISULFATE 75 MG TAB PO SCH (09:53)
[2021-07-31] MEDS: CHOLECALCIFEROL (VITD3) 2,000 UNIT CAP/TAB PO SCH (09:53)
[2021-07-31] MEDS: BENAZEPRIL HCL 10 MG TAB PO SCH (09:54)
[2021-07-31] MEDS: ASPirin 81 mg TAB PO SCH (09:54)
[2021-07-31] MEDS: METOPROLOL SUCCINATE XL 50 MG TAB PO SCH (09:55)
[2021-07-31] MEDS: ENOXAPARIN SOD 40 MG/0.4 ML SYRINGE SC SCH (09:55)
[2021-07-31] MEDS: hydrOXYchloroQUINE SULFATE 200 MG TAB PO SCH ×2 (09:56→23:00)
[2021-07-31] MEDS: PARoxetine 20 MG TAB PO SCH (09:56)
[2021-07-31] MEDS: levETIRAcetam 500 MG TAB PO SCH ×2 (09:59→23:12)
[2021-07-31] MEDS: TROKENDI 200 MG PO SCH (10:00)
[2021-07-31] MEDS: LORazepam 0.5 MG TAB PO SCH ×2 (10:00→23:13)
[2021-07-31] MEDS: OXYBUTININ PO SCH (10:00)
[2021-07-31] MEDS: TOVIAZ 8 MG PO SCH (10:00)
[2021-07-31] MEDS: BUDESONIDE (INHALATION) 0.5 MG/2 ML NEB NEB SCH ×2 (10:44→18:12)
[2021-07-31] MEDS: NIFEdipine ER 30 MG TAB PO SCH (11:02)
[2021-07-31] MEDS: AZITHROMYCIN 500MG/ 250ML 250 ML IV SCH (11:38)
[2021-07-31 12:00] VITALS: BP 158/74
[2021-07-31 16:00] VITALS: BP 114/60
[2021-07-31] MEDS: ALBUTEROL SULF 2.5 MG/0.5ML(0.5%) NEB SOLN NEB PRN (18:12)
[2021-07-31 18:33] LABS: Basophils # (auto) 0.1 10 ^3/uL (0-0.2); Basophils % (auto) 0.5 % (0.0-2.0); Eosinophils # (auto) 0 10 ^3/uL (0-0.8); Eosinophils % (auto) 0.2 % (0.0-7.0); Hematocrit 35.2 % (36.0-46.0); Hemoglobin 11.7 g/dL (12.2-16.2); Lymphocytes # (auto) 0.7 10 ^3/uL (0.4-5.4); Lymphocytes % (auto) 5.5 % (10.0-50.0); Mean Corpuscular Hgb Conc. 33.2 g/dL (32.0-36.0); Mean Corpuscular Volume 84.4 fL (80.0-100.0); Monocytes # (auto) 0.8 10 ^3/uL (0-1.3); Monocytes % (auto) 6.9 % (0.0-12.0); Neutrophils # (auto) 10.4 10 ^3/uL (1.6-8.6); Neutrophils % (auto) 86.9 % (37.0-80.0); Nucleated Red Blood Cells % 0.1 %; Red Blood Cells 4.17 10^6/uL (4.0-5.20)
[2021-07-31 19:22] LABS: Albumin 2.9 g/dL (3.4-5.0); BUN/Creatinine Ratio 29.8; Calcium 9.2 mg/dL (8.5-10.1); Potassium 3.4 mmol/L (3.5-5.1)
[2021-07-31 19:24] LABS: Bilirubin, Total 0.4 mg/dL (0.2-1.0); Total Protein 7.4 g/dL (6.4-8.2)
[2021-07-31 19:30] VITALS: BP 152/78
[2021-07-31 22:00] VITALS: BP 152/78
[2021-07-31] MEDS: AMITRIPTYLINE 100 MG PO SCH (22:00)
[2021-07-31] MEDS: PANTOPRAZOLE 40 MG TAB PO SCH (23:00)
[2021-07-31] MEDS: ATORVASTATIN 20 MG TAB PO SCH (23:01)
[2021-07-31] MEDS: hydrOXYzine 25 MG TAB or CAP PO SCH (23:13)
[2021-08-01 05:00] VITALS: BP 127/67
[2021-08-01] MEDS: MECLIZINE HCL 25 MG TAB PO SCH ×3 (05:39→22:12)
[2021-08-01] MEDS: FUROSEMIDE 20 MG/2 ML VIAL IV SCH ×2 (05:39→18:20)
[2021-08-01] MEDS: HYDROcodone-ACET 10/325MG TAB PO SCH ×4 (05:39→22:12)
[2021-08-01] MEDS: InsuLIN REG 1unit/0.01ml Soln (100units/ml) SC SCH ×4 (05:56→22:00)
[2021-08-01] MEDS: ACCU-CHEK COMFORT CURVE STRIP VI SCH ×4 (05:56→22:13)
[2021-08-01] MEDS: LEVOTHYROXINE SODIUM 100 MCG TAB PO SCH (06:37)
[2021-08-01] MEDS: SUCRALFATE 1 GM/10 ML ORAL SUSP PO SCH ×4 (06:37→22:06)
[2021-08-01 08:59] VITALS: BP 120/53
[2021-08-01] MEDS: FOLIC ACID 1 MG TAB PO SCH (09:48)
[2021-08-01] MEDS: CHOLECALCIFEROL (VITD3) 2,000 UNIT CAP/TAB PO SCH (09:48)
[2021-08-01] MEDS: cefTRIAXone 1GM/50ML D5W 50 ML IV SCH (09:48)
[2021-08-01] MEDS: ALLOPURINOL 100 MG TAB PO SCH (09:48)
[2021-08-01] MEDS: MULTIPLE VITAMINS W/ MINERALS TAB PO SCH (09:48)
[2021-08-01] MEDS: ASPirin 81 mg TAB PO SCH (09:48)
[2021-08-01] MEDS: CLOPIDOGREL BISULFATE 75 MG TAB PO SCH (09:49)
[2021-08-01] MEDS: hydrOXYchloroQUINE SULFATE 200 MG TAB PO SCH ×2 (09:50→22:12)
[2021-08-01] MEDS: PARoxetine 20 MG TAB PO SCH (09:51)
[2021-08-01] MEDS: levETIRAcetam 500 MG TAB PO SCH ×2 (09:52→22:13)
[2021-08-01] MEDS: ENOXAPARIN SOD 40 MG/0.4 ML SYRINGE SC SCH (09:52)
[2021-08-01] MEDS: BUDESONIDE (INHALATION) 0.5 MG/2 ML NEB NEB SCH ×2 (09:55→18:33)
[2021-08-01] MEDS: IPRATROPIUM BROM 0.5 MG/2.5ML INH SOL NEB PRN (09:56)
[2021-08-01] MEDS: ALBUTEROL SULF 2.5 MG/0.5ML(0.5%) NEB SOLN NEB PRN (09:56)
[2021-08-01] MEDS: METOPROLOL SUCCINATE XL 50 MG TAB PO SCH (10:00)
[2021-08-01] MEDS: TROKENDI 200 MG PO SCH (10:00)
[2021-08-01] MEDS: NIFEdipine ER 30 MG TAB PO SCH (10:00)
[2021-08-01] MEDS: TOVIAZ 8 MG PO SCH (10:00)
[2021-08-01] MEDS: OXYBUTININ PO SCH (10:00)
[2021-08-01] MEDS: BENAZEPRIL HCL 10 MG TAB PO SCH (10:00)
[2021-08-01] MEDS: LORazepam 0.5 MG TAB PO SCH ×2 (10:00→22:11)
[2021-08-01] MEDS: AZITHROMYCIN 500MG/ 250ML 250 ML IV SCH (12:00)
[2021-08-01 13:00] VITALS: BP 113/46
[2021-08-01 17:00] VITALS: BP 115/79
[2021-08-01] MEDS: AMITRIPTYLINE 100 MG PO SCH (21:53)
[2021-08-01 22:00] VITALS: BP 109/58
[2021-08-01] MEDS: ATORVASTATIN 20 MG TAB PO SCH (22:11)
[2021-08-01] MEDS: PANTOPRAZOLE 40 MG TAB PO SCH (22:13)
[2021-08-01] MEDS: hydrOXYzine 25 MG TAB or CAP PO SCH (22:21)
[2021-08-02 04:57] VITALS: BP 148/63
[2021-08-02] MEDS: FUROSEMIDE 20 MG/2 ML VIAL IV SCH (05:22)
[2021-08-02] MEDS: HYDROcodone-ACET 10/325MG TAB PO SCH ×2 (05:22→15:01)
[2021-08-02] MEDS: MECLIZINE HCL 25 MG TAB PO SCH ×2 (05:23→15:01)
[2021-08-02] MEDS: SUCRALFATE 1 GM/10 ML ORAL SUSP PO SCH ×2 (06:10→12:16)
[2021-08-02] MEDS: LEVOTHYROXINE SODIUM 100 MCG TAB PO SCH (06:11)
[2021-08-02] MEDS: InsuLIN REG 1unit/0.01ml Soln (100units/ml) SC SCH ×2 (06:11→11:30)
[2021-08-02] MEDS: ACCU-CHEK COMFORT CURVE STRIP VI SCH ×2 (07:05→12:17)
[2021-08-02 08:31] VITALS: BP 118/46
[2021-08-02] MEDS: NIFEdipine ER 30 MG TAB PO SCH (09:24)
[2021-08-02] MEDS: CHOLECALCIFEROL (VITD3) 2,000 UNIT CAP/TAB PO SCH (09:24)
[2021-08-02] MEDS: METOPROLOL SUCCINATE XL 50 MG TAB PO SCH (09:25)
[2021-08-02] MEDS: MULTIPLE VITAMINS W/ MINERALS TAB PO SCH (09:25)
[2021-08-02] MEDS: FOLIC ACID 1 MG TAB PO SCH (09:25)
[2021-08-02] MEDS: ASPirin 81 mg TAB PO SCH (09:25)
[2021-08-02] MEDS: PARoxetine 20 MG TAB PO SCH (09:25)
[2021-08-02] MEDS: ALLOPURINOL 100 MG TAB PO SCH (09:26)
[2021-08-02] MEDS: BENAZEPRIL HCL 10 MG TAB PO SCH (09:26)
[2021-08-02] MEDS: AZITHROMYCIN 500MG/ 250ML 250 ML IV SCH (09:27)
[2021-08-02] MEDS: LORazepam 0.5 MG TAB PO SCH (09:27)
[2021-08-02] MEDS: ENOXAPARIN SOD 40 MG/0.4 ML SYRINGE SC SCH (09:27)
[2021-08-02] MEDS: CLOPIDOGREL BISULFATE 75 MG TAB PO SCH (09:27)
[2021-08-02] MEDS: cefTRIAXone 1GM/50ML D5W 50 ML IV SCH (09:27)
[2021-08-02] MEDS: levETIRAcetam 500 MG TAB PO SCH (09:28)
[2021-08-02] MEDS: hydrOXYchloroQUINE SULFATE 200 MG TAB PO SCH (09:28)
[2021-08-02] MEDS: TROKENDI 200 MG PO SCH (09:39)
[2021-08-02] MEDS: OXYBUTININ PO SCH (09:39)
[2021-08-02] MEDS: TOVIAZ 8 MG PO SCH (09:39)
[2021-08-02] MEDS: IPRATROPIUM BROM 0.5 MG/2.5ML INH SOL NEB PRN (09:41)
[2021-08-02] MEDS: ALBUTEROL SULF 2.5 MG/0.5ML(0.5%) NEB SOLN NEB PRN (09:41)
[2021-08-02] MEDS: BUDESONIDE (INHALATION) 0.5 MG/2 ML NEB NEB SCH (09:41)
[2021-08-02 12:27] VITALS: BP 114/43
== END 2021-08-02 16:11 | DRG 280 ==
LOC: ER 12:30 → TELE 17:31 → TELE-EAST 20:31
PROVIDERS: ADMIT Hospitalist; ATTEND Hospitalist
DX: I11.0 Hypertensive heart disease with heart failure (principal); J18.9 Pneumonia, unspecified organism; I21.4 Non-ST elevation (NSTEMI) myocardial infarction; J96.21 Acute and chronic respiratory failure with hypoxia; I50.43 Acute on chronic combined systolic (congestive) and diastolic (congestive) heart failure; I16.1 Hypertensive emergency; J44.1 Chronic obstructive pulmonary disease with (acute) exacerbation; Z68.41 Body mass index [BMI] 40.0-44.9, adult; I42.9 Cardiomyopathy, unspecified; I27.21 Secondary pulmonary arterial hypertension; D64.9 Anemia, unspecified; E88.09 Other disorders of plasma-protein metabolism, not elsewhere classified; M32.9 Systemic lupus erythematosus, unspecified; E03.9 Hypothyroidism, unspecified; E66.9 Obesity, unspecified; E78.5 Hyperlipidemia, unspecified; F32.9 Major depressive disorder, single episode, unspecified; F41.9 Anxiety disorder, unspecified; R00.1 Bradycardia, unspecified; R26.2 Difficulty in walking, not elsewhere classified; Z20.822 Contact with and (suspected) exposure to COVID-19; G40.909 Epilepsy, unspecified, not intractable, without status epilepticus; I25.10 Atherosclerotic heart disease of native coronary artery without angina pectoris; R32 Unspecified urinary incontinence; I44.0 Atrioventricular block, first degree; K21.9 Gastro-esophageal reflux disease without esophagitis; K59.09 Other constipation; M19.90 Unspecified osteoarthritis, unspecified site; M1A.9XX0 Chronic gout, unspecified, without tophus (tophi); E11.9 Type 2 diabetes mellitus without complications; F17.200 Nicotine dependence, unspecified, uncomplicated; I25.2 Old myocardial infarction; Z79.51 Long term (current) use of inhaled steroids; Z79.899 Other long term (current) drug therapy; Z88.8 Allergy status to other drugs, medicaments and biological substances
CPT/HCPCS: 36415; 36600; 70450; 71046; 74176; 78582; 80048; 80053; 80061; 80307; 81001; 82728; 82805; 82962; 83036; 83615; 83690; 83735; 83880; 84100; 84156; 84443; 84484; 84550; 85025; 85379; 85610; 85652; 85730; 86141; 87040; 87086; 93005; 93306; 93970; 94640; 96374; 99291; G0378; J0696; J1815

== ENCOUNTER 2021-09-05 15:05 | Inpatient (IN) | payer OTHER ==
[~2021-09-05] VITALS: Ht 154.9 cm; Wt 96.3 kg
[~2021-09-05 15:05] MED LIST changes: -FUR20T PO; +FURO1TAB33 PO; -HYDR-4188 PO; -LEVE250T18 PO; +LEVO500T31 PO
[2021-09-05 16:52] LABS: Basophils # (auto) 0.1 10 ^3/uL (0-0.2); Basophils % (auto) 0.8 % (0.0-2.0); Eosinophils # (auto) 0.1 10 ^3/uL (0-0.8); Eosinophils % (auto) 1.2 % (0.0-7.0); Hematocrit 39.8 % (36.0-46.0); Hemoglobin 12.9 g/dL (12.2-16.2); Lymphocytes % (auto) 19.9 % (10.0-50.0); Mean Corpuscular Hemoglobin 28.1 pg (28.0-32.0); Mean Corpuscular Hgb Conc. 32.3 g/dL (32.0-36.0); Monocytes # (auto) 0.4 10 ^3/uL (0-1.3); Monocytes % (auto) 4.3 % (0.0-12.0); Neutrophils # (auto) 7.4 10 ^3/uL (1.6-8.6); Neutrophils % (auto) 73.8 % (37.0-80.0); Nucleated Red Blood Cells % 0.1 %; Red Blood Cells 4.58 10^6/uL (4.0-5.20); Red Cell Distribution Width 14.9 % (11.8-14.3)
[2021-09-05 17:26] LABS: Albumin 3.4 g/dL (3.4-5.0); Calcium 9.7 mg/dL (8.5-10.1); Potassium 4.1 mmol/L (3.5-5.1)
[2021-09-05 17:32] LABS: BUN/Creatinine Ratio 16.8; Bilirubin, Total 0.3 mg/dL (0.2-1.0); Total Protein 7.7 g/dL (6.4-8.2)
[2021-09-05] MEDS ORDERED: ASPirin 325 MG TAB PO ONE (18:45)
[2021-09-05] MEDS ORDERED: CLOPIDOGREL BISULFATE 75 MG TAB PO ONE (18:45)
[2021-09-05] MEDS ORDERED: DEXTROSE (50%) 50ML SYRG IV PRN (21:45)
[2021-09-05] MEDS ORDERED: ACETAMINOPHEN 325 MG TAB PO PRN (21:45)
[2021-09-05] MEDS ORDERED: DOCUSATE SOD 100 MG CAP PO PRN (21:45)
[2021-09-05] MEDS ORDERED: InsuLIN REG 1unit/0.01ml Soln (100units/ml) SC SCH (22:00)
[2021-09-05] MEDS: ACCU-CHEK COMFORT CURVE STRIP VI SCH (22:00)
[2021-09-05] MEDS: SODIUM CHLOR 0.9% PF (SALINE LOCK) 10ML VIAL/SYR IV SCH (22:00)
[2021-09-05 22:02] VITALS: BP 139/84
[2021-09-05] MEDS: HEPARIN SODIUM (PORCINE) 5000 UNITS/ML 1ML VIAL SC SCH (22:39)
[2021-09-05] MEDS ORDERED: NITROGLYCERIN 0.4 MG SL TAB SL PRN (23:45)
[2021-09-05] MEDS ORDERED: MORPHINE SULFATE INJ 2 MG/ml SYRG IV PRN (23:45)
[2021-09-06 05:00] VITALS: BP 128/66
[2021-09-06] MEDS: InsuLIN REG 1unit/0.01ml Soln (100units/ml) SC SCH ×3 (06:39→18:02)
[2021-09-06] MEDS: SODIUM CHLOR 0.9% PF (SALINE LOCK) 10ML VIAL/SYR IV SCH ×3 (06:39→22:59)
[2021-09-06] MEDS: LEVOTHYROXINE SODIUM 100 MCG TAB PO SCH (06:39)
[2021-09-06] MEDS: ACCU-CHEK COMFORT CURVE STRIP VI SCH ×4 (06:39→23:00)
[2021-09-06 06:49] LABS: Basophils # (auto) 0 10 ^3/uL (0-0.2); Basophils % (auto) 0.3 % (0.0-2.0); Eosinophils # (auto) 0.1 10 ^3/uL (0-0.8); Eosinophils % (auto) 0.5 % (0.0-7.0); Hematocrit 37.2 % (36.0-46.0); Hemoglobin 12.3 g/dL (12.2-16.2); Lymphocytes # (auto) 1.5 10 ^3/uL (0.4-5.4); Lymphocytes % (auto) 11.5 % (10.0-50.0); Mean Corpuscular Hemoglobin 28.5 pg (28.0-32.0); Mean Corpuscular Hgb Conc. 33.1 g/dL (32.0-36.0); Mean Corpuscular Volume 86.1 fL (80.0-100.0); Monocytes # (auto) 0.6 10 ^3/uL (0-1.3); Monocytes % (auto) 4.3 % (0.0-12.0); Neutrophils # (auto) 10.8 10 ^3/uL (1.6-8.6); Neutrophils % (auto) 83.4 % (37.0-80.0); Red Blood Cells 4.32 10^6/uL (4.0-5.20); Red Cell Distribution Width 14.5 % (11.8-14.3)
[2021-09-06 07:06] LABS: Calcium 9.7 mg/dL (8.5-10.1); Potassium 3.9 mmol/L (3.5-5.1)
[2021-09-06 07:09] LABS: Albumin 3.3 g/dL (3.4-5.0); BUN/Creatinine Ratio 17.8
[2021-09-06 07:11] LABS: Bilirubin, Total 0.4 mg/dL (0.2-1.0); Total Protein 7.7 g/dL (6.4-8.2)
[2021-09-06 09:00] VITALS: BP 132/74
[2021-09-06] MEDS: ASPirin 81 mg TAB PO SCH (09:55)
[2021-09-06] MEDS: HEPARIN SODIUM (PORCINE) 5000 UNITS/ML 1ML VIAL SC SCH ×2 (09:56→20:48)
[2021-09-06] MEDS: Fluticasone-Salmeterol (Advair Diskus 250/50) IN SCH ×2 (10:00→22:00)
[2021-09-06] MEDS ORDERED: FAMOTIDINE (10MG/ML) 2ML VL IV SCH (10:00)
[2021-09-06] MEDS: hydrOXYchloroQUINE SULFATE 200 MG TAB PO SCH ×2 (10:31→20:39)
[2021-09-06] MEDS: ATENOLOL 50 MG TAB PO SCH ×2 (10:33→20:39)
[2021-09-06] MEDS: ALLOPURINOL 100 MG TAB PO SCH (10:34)
[2021-09-06 13:00] VITALS: BP 150/63
[2021-09-06] MEDS ORDERED: PARoxetine 20 MG TAB PO ONE (14:00)
[2021-09-06] MEDS: OXYBUTYNIN CHL 5 MG TAB PO SCH ×2 (14:00→22:59)
[2021-09-06 16:26] VITALS: BP 130/76
[2021-09-06] MEDS ORDERED: TPN PER PHARMACY 0 ML IV SCH (17:00)
[2021-09-06] MEDS: FUROSEMIDE 20 MG TAB PO SCH (17:59)
[2021-09-06] MEDS: TOPIRAMATE 100 MG TAB PO SCH (20:38)
[2021-09-06] MEDS: ONDANSETRON HCL 4 MG/2 ML VIAL IV PRN ×2 (20:38→22:32)
[2021-09-06] MEDS: HYDROcodone-ACET 5/325MG TAB PO PRN ×3 (20:48→22:35)
[2021-09-06 22:00] VITALS: BP 152/63
[2021-09-06] MEDS ORDERED: AMITRIPTYLINE HCL 25 MG TAB PO SCH (22:00)
[2021-09-06] MEDS ORDERED: ATORVASTATIN 20 MG TAB PO SCH (22:00)
[2021-09-06] MEDS ORDERED: PANTOPRAZOLE 40 MG TAB PO SCH (22:00)
[2021-09-06] MEDS ORDERED: LORazepam 0.5 MG TAB PO PRN (22:00)
[2021-09-07 05:00] VITALS: BP 156/57
[2021-09-07 05:31] LABS: Basophils # (auto) 0 10 ^3/uL (0-0.2); Basophils % (auto) 0.4 % (0.0-2.0); Eosinophils # (auto) 0 10 ^3/uL (0-0.8); Eosinophils % (auto) 0.3 % (0.0-7.0); Hematocrit 36.1 % (36.0-46.0); Hemoglobin 11.9 g/dL (12.2-16.2); Lymphocytes # (auto) 1.6 10 ^3/uL (0.4-5.4); Lymphocytes % (auto) 12.2 % (10.0-50.0); Mean Corpuscular Hemoglobin 28.1 pg (28.0-32.0); Mean Corpuscular Hgb Conc. 32.9 g/dL (32.0-36.0); Mean Corpuscular Volume 85.2 fL (80.0-100.0); Monocytes # (auto) 0.7 10 ^3/uL (0-1.3); Monocytes % (auto) 5.6 % (0.0-12.0); Neutrophils # (auto) 10.6 10 ^3/uL (1.6-8.6); Neutrophils % (auto) 81.5 % (37.0-80.0); Nucleated Red Blood Cells % 0.1 %; Red Blood Cells 4.24 10^6/uL (4.0-5.20); Red Cell Distribution Width 15.1 % (11.8-14.3)
[2021-09-07 05:42] LABS: Calcium 9.4 mg/dL (8.5-10.1); Potassium 4.3 mmol/L (3.5-5.1)
[2021-09-07 05:44] LABS: BUN/Creatinine Ratio 22.2
[2021-09-07] MEDS: OXYBUTYNIN CHL 5 MG TAB PO SCH ×2 (06:07→14:18)
[2021-09-07] MEDS: SODIUM CHLOR 0.9% PF (SALINE LOCK) 10ML VIAL/SYR IV SCH ×2 (06:07→14:18)
[2021-09-07] MEDS: FUROSEMIDE 20 MG TAB PO SCH (06:08)
[2021-09-07] MEDS: LEVOTHYROXINE SODIUM 100 MCG TAB PO SCH (06:08)
[2021-09-07] MEDS: InsuLIN REG 1unit/0.01ml Soln (100units/ml) SC SCH ×2 (06:09→11:30)
[2021-09-07] MEDS: ACCU-CHEK COMFORT CURVE STRIP VI SCH ×2 (06:10→12:20)
[2021-09-07 09:00] VITALS: BP 109/60
[2021-09-07] MEDS: Fluticasone-Salmeterol (Advair Diskus 250/50) IN SCH (09:31)
[2021-09-07] MEDS: TOPIRAMATE 100 MG TAB PO SCH (09:32)
[2021-09-07] MEDS: ALLOPURINOL 100 MG TAB PO SCH (09:32)
[2021-09-07] MEDS: hydrOXYchloroQUINE SULFATE 200 MG TAB PO SCH (09:32)
[2021-09-07] MEDS: ATENOLOL 50 MG TAB PO SCH (09:33)
[2021-09-07] MEDS: ASPirin 81 mg TAB PO SCH (09:33)
[2021-09-07] MEDS: HEPARIN SODIUM (PORCINE) 5000 UNITS/ML 1ML VIAL SC SCH (09:33)
[2021-09-07] MEDS ORDERED: PARoxetine 20 MG TAB PO SCH (10:00)
[2021-09-07] MEDS ORDERED: CLOPIDOGREL 300 MG TAB PO ONE (10:30)
[2021-09-07 12:47] VITALS: BP 106/80
[2021-09-07] MEDS ORDERED: CIPR-173 PO (12:51)
[2021-09-07] MEDS ORDERED: ASPI1CHW15 PO (12:51)
[2021-09-07] MEDS ORDERED: CLOP75TA70 PO (12:51)
[2021-09-07] MEDS ORDERED: SCOP1DIS TD (12:53)
[2021-09-07 13:22] VITALS: BP 109/60
[2021-09-07 13:32] LABS: Urine Bacteria NONE SEEN /hpf (None Seen); Urine Blood Negative /uL (Negative); Urine Mucus FEW (None Seen); Urine Specific Gravity 1.011 (1.001-1.035); Urine WBC 5 /hpf (0 - 5)
[2021-09-07] MEDS ORDERED: NYSTATIN (MOUTH-THROAT) 500,000 UNITS/5 ML SUSP MT SCH (18:00)
[2021-09-08] MEDS ORDERED: CLOPIDOGREL BISULFATE 75 MG TAB PO SCH (10:00)
== END 2021-09-07 14:26 | disposition home or self-care (01) | DRG 149 ==
LOC: ER 15:11 → TELE 23:44 → TELE-EAST 09-06 00:57
PROVIDERS: ADMIT Nurse Practitioner Family; ATTEND Hospitalist
DX: H81.10 Benign paroxysmal vertigo, unspecified ear (principal); I13.0 Hypertensive heart and chronic kidney disease with heart failure and stage 1 through stage 4 chronic kidney disease, or unspecified chronic kidney disease; Z20.822 Contact with and (suspected) exposure to COVID-19; D64.9 Anemia, unspecified; E11.22 Type 2 diabetes mellitus with diabetic chronic kidney disease; I25.10 Atherosclerotic heart disease of native coronary artery without angina pectoris; N18.30 Chronic kidney disease, stage 3 unspecified; M79.7 Fibromyalgia; J44.9 Chronic obstructive pulmonary disease, unspecified; E03.9 Hypothyroidism, unspecified; I50.9 Heart failure, unspecified
CPT/HCPCS: 36415; 70551; 80048; 80053; 81001; 82542; 82962; 83036; 83880; 84443; 84484; 85025; 87086; 93005; 93886; 99291; G0378; J1815; J2405; J7060

== ENCOUNTER 2021-09-14 12:45 | Inpatient (IN) | payer OTHER ==
[~2021-09-14] VITALS: Ht 154.9 cm; Wt 95.0 kg
[~2021-09-14 12:45] MED LIST changes: -AMLO-483 PO; +ASPI1CHW15 PO; +CIPR-173 PO; +CLOP75TA70 PO; -HYDR50CA2 PO; -LEVO500T31 PO; +SCOP1DIS TD
[2021-09-14 15:08] LABS: BUN/Creatinine Ratio 23.6; Calcium 9.1 mg/dL (8.5-10.1); Magnesium 2.2 mg/dL (1.6-2.6); Potassium 3.8 mmol/L (3.5-5.1)
[2021-09-14 15:17] LABS: Bilirubin, Total 0.2 mg/dL (0.2-1.0); Total Protein 7.4 g/dL (6.4-8.2)
[2021-09-14] MEDS ORDERED: ASPirin 325 MG TAB PO ONE (16:00)
[2021-09-14 18:33] LABS: Basophils # (auto) 0.2 10 ^3/uL (0-0.2); Basophils % (auto) 2.3 % (0.0-2.0); Eosinophils # (auto) 0.1 10 ^3/uL (0-0.8); Eosinophils % (auto) 1.6 % (0.0-7.0); Hematocrit 35.6 % (36.0-46.0); Hemoglobin 11.7 g/dL (12.2-16.2); Lymphocytes # (auto) 0.8 10 ^3/uL (0.4-5.4); Lymphocytes % (auto) 8.7 % (10.0-50.0); Mean Corpuscular Hemoglobin 28.5 pg (28.0-32.0); Mean Corpuscular Volume 86.5 fL (80.0-100.0); Monocytes # (auto) 0.6 10 ^3/uL (0-1.3); Neutrophils # (auto) 7.5 10 ^3/uL (1.6-8.6); Neutrophils % (auto) 81.4 % (37.0-80.0); Nucleated Red Blood Cells % 0.1 %; Red Blood Cells 4.11 10^6/uL (4.0-5.20); Red Cell Distribution Width 15.3 % (11.8-14.3); White Blood Cell 9.2 10^3/uL (4.4-10.8)
[2021-09-14] MEDS ORDERED: MORPHINE SULFATE INJ 2 MG/ml SYRG IV PRN (19:00)
[2021-09-14] MEDS ORDERED: NITROGLYCERIN 0.4 MG SL TAB SL PRN (19:00)
[2021-09-14 22:00] VITALS: BP 153/61
[2021-09-14 22:25] VITALS: BP 149/62
[2021-09-15] MEDS ORDERED: MORPHINE SULFATE INJ 2 MG/ml SYRG IV PRN (01:00)
[2021-09-15] MEDS ORDERED: ACETAMINOPHEN 325 MG TAB PO PRN (01:00)
[2021-09-15] MEDS ORDERED: BUDESONIDE (INHALATION) 0.5 MG/2 ML NEB NEB ONE (01:00)
[2021-09-15] MEDS ORDERED: IPRATROPIUM BROM 0.5 MG/2.5ML INH SOL NEB ONE (01:00)
[2021-09-15] MEDS ORDERED: ONDANSETRON HCL 4 MG/2 ML VIAL IV PRN (01:00)
[2021-09-15] MEDS ORDERED: MECLIZINE HCL 25 MG TAB PO PRN (01:00)
[2021-09-15] MEDS ORDERED: LORazepam 0.5 MG TAB PO PRN (01:00)
[2021-09-15] MEDS ORDERED: DOCUSATE SOD 100 MG CAP PO PRN (01:00)
[2021-09-15] MEDS ORDERED: hydrALAZINE HCL 20 MG/ML VL IV PRN (01:00)
[2021-09-15] MEDS ORDERED: DEXTROSE (50%) 50ML SYRG IV PRN (01:00)
[2021-09-15] MEDS ORDERED: PANTOPRAZOLE 40 MG/10 ML VIAL INJ IV ONE (01:00)
[2021-09-15] MEDS: cefTRIAXone 1GM/50ML D5W 50 ML IV SCH (02:15)
[2021-09-15 05:00] VITALS: BP 136/65
[2021-09-15] MEDS: FUROSEMIDE 20 MG/2 ML VIAL IV SCH ×2 (06:37→18:00)
[2021-09-15] MEDS: LEVOTHYROXINE SODIUM 50 MCG TAB PO SCH (06:38)
[2021-09-15] MEDS: MECLIZINE HCL 25 MG TAB PO SCH ×3 (06:38→22:56)
[2021-09-15] MEDS: GABAPENTIN 100 MG CAP PO SCH ×3 (06:38→22:58)
[2021-09-15] MEDS: ACCU-CHEK COMFORT CURVE STRIP VI SCH ×4 (06:38→22:59)
[2021-09-15] MEDS: InsuLIN REG 1unit/0.01ml Soln (100units/ml) SC SCH ×4 (06:39→22:00)
[2021-09-15 06:58] LABS: Basophils # (auto) 0 10 ^3/uL (0-0.2); Basophils % (auto) 0.3 % (0.0-2.0); Eosinophils # (auto) 0.1 10 ^3/uL (0-0.8); Eosinophils % (auto) 1.1 % (0.0-7.0); Hematocrit 34.7 % (36.0-46.0); Hemoglobin 11.5 g/dL (12.2-16.2); Lymphocytes # (auto) 1.1 10 ^3/uL (0.4-5.4); Lymphocytes % (auto) 14.4 % (10.0-50.0); Mean Corpuscular Hemoglobin 28.3 pg (28.0-32.0); Mean Corpuscular Hgb Conc. 33.1 g/dL (32.0-36.0); Mean Corpuscular Volume 85.6 fL (80.0-100.0); Monocytes # (auto) 0.5 10 ^3/uL (0-1.3); Monocytes % (auto) 6.3 % (0.0-12.0); Neutrophils # (auto) 6.1 10 ^3/uL (1.6-8.6); Neutrophils % (auto) 77.9 % (37.0-80.0); Red Blood Cells 4.05 10^6/uL (4.0-5.20); Red Cell Distribution Width 14.5 % (11.8-14.3); White Blood Cell 7.8 10^3/uL (4.4-10.8)
[2021-09-15] MEDS: IPRATROPIUM BROM 0.5 MG/2.5ML INH SOL NEB SCH ×5 (07:02→22:43)
[2021-09-15 09:28] LABS: Alcohol, Urine < 3.0 mg/dL (0-10); Amphetamine Screen, Urine NEGATIVE (NEGATIVE); Barbiturate Scree,Urine NEGATIVE (NEGATIVE); Benzodiazephine Screen, Urine NEGATIVE (NEGATIVE); Cannabinoid Screen, Urine NEGATIVE (NEGATIVE); Cocaine Screen, Urine NEGATIVE (NEGATIVE); Opiate Scree,Urine NEGATIVE (NEGATIVE); Phencyclidine Screen, Urine NEGATIVE (NEGATIVE)
[2021-09-15 09:30] LABS: Urine Bacteria FEW /hpf (None Seen); Urine Blood Negative /uL (Negative); Urine Hyaline Cast MOD /lpf (0 - 2); Urine Specific Gravity 1.016 (1.001-1.035); Urine WBC 4 /hpf (0 - 5)
[2021-09-15 09:35] LABS: Cholesterol 172 mg/dL (< 200); HDL Cholesterol 85 mg/dL (40-59); LDL Cholesterol 69 mg/dL (< 100); Triglycerides 115 mg/dL (< 150)
[2021-09-15 09:37] LABS: Albumin 2.8 g/dL (3.4-5.0); Calcium 8.8 mg/dL (8.5-10.1); Potassium 3.3 mmol/L (3.5-5.1); Uric Acid 10.3 mg/dL (2.6-6.0)
[2021-09-15 09:46] LABS: Bilirubin, Total 0.3 mg/dL (0.2-1.0); CRP High Sensitivity 4.7 mg/dL (< 0.3); Phosphorus 3.9 mg/dL (2.5-4.90); Total Protein 7.5 g/dL (6.4-8.2)
[2021-09-15] MEDS ORDERED: LEVOTHYROXINE SODIUM 100 MCG TAB PO SCH (10:00)
[2021-09-15] MEDS: PANTOPRAZOLE 40 MG/10 ML VIAL INJ IV SCH (10:07)
[2021-09-15] MEDS: levETIRAcetam 500 MG TAB PO SCH ×2 (10:08→22:57)
[2021-09-15] MEDS: OXYBUTYNIN CHL 5 MG TAB PO SCH ×2 (10:08→22:56)
[2021-09-15] MEDS: ASPirin 81 mg TAB PO SCH (10:08)
[2021-09-15] MEDS: ISOSORBIDE MONONITRATE 20 MG TAB PO SCH ×2 (10:08→22:57)
[2021-09-15] MEDS: ALLOPURINOL 100 MG TAB PO SCH (10:09)
[2021-09-15] MEDS: BENAZEPRIL HCL 10 MG TAB PO SCH (10:09)
[2021-09-15] MEDS: TOPIRAMATE 100 MG TAB PO SCH ×2 (10:09→22:59)
[2021-09-15] MEDS: POTASSIUM CHL 20 Meq TABLET PO SCH ×2 (10:09→22:58)
[2021-09-15] MEDS: hydrOXYchloroQUINE SULFATE 200 MG TAB PO SCH ×2 (10:09→22:58)
[2021-09-15] MEDS: ENOXAPARIN SOD 40 MG/0.4 ML SYRINGE SC SCH (10:10)
[2021-09-15 10:33] LABS: INR 1.05 (0.9-1.15); Partial Thromboplastin Time 32.8 sec (23.6-33.0)
[2021-09-15 13:00] VITALS: BP 97/51
[2021-09-15] MEDS: CLOPIDOGREL BISULFATE 75 MG TAB PO SCH (13:39)
[2021-09-15 14:58] VITALS: BP 136/65
[2021-09-15 17:17] VITALS: BP 111/63
[2021-09-15] MEDS: ALBUTEROL SULF 2.5 MG/0.5ML(0.5%) NEB SOLN NEB PRN (18:13)
[2021-09-15] MEDS: BUDESONIDE (INHALATION) 0.5 MG/2 ML NEB NEB SCH (18:14)
[2021-09-15 22:00] VITALS: BP 102/51
[2021-09-15] MEDS: ATORVASTATIN 20 MG TAB PO SCH (22:58)
[2021-09-16] MEDS: IPRATROPIUM BROM 0.5 MG/2.5ML INH SOL NEB SCH ×6 (01:13→22:48)
[2021-09-16 05:00] VITALS: BP 126/67
[2021-09-16] MEDS: ALBUTEROL SULF 2.5 MG/0.5ML(0.5%) NEB SOLN NEB PRN ×3 (06:03→22:48)
[2021-09-16] MEDS: BUDESONIDE (INHALATION) 0.5 MG/2 ML NEB NEB SCH ×2 (06:04→19:41)
[2021-09-16 06:06] LABS: Basophils # (auto) 0 10 ^3/uL (0-0.2); Basophils % (auto) 0.4 % (0.0-2.0); Eosinophils # (auto) 0.1 10 ^3/uL (0-0.8); Eosinophils % (auto) 1.3 % (0.0-7.0); Hematocrit 32.7 % (36.0-46.0); Hemoglobin 10.8 g/dL (12.2-16.2); Lymphocytes # (auto) 1.4 10 ^3/uL (0.4-5.4); Lymphocytes % (auto) 19.2 % (10.0-50.0); Mean Corpuscular Hemoglobin 28.3 pg (28.0-32.0); Mean Corpuscular Hgb Conc. 33.1 g/dL (32.0-36.0); Mean Corpuscular Volume 85.5 fL (80.0-100.0); Monocytes # (auto) 0.5 10 ^3/uL (0-1.3); Monocytes % (auto) 7.2 % (0.0-12.0); Neutrophils # (auto) 5.3 10 ^3/uL (1.6-8.6); Neutrophils % (auto) 71.9 % (37.0-80.0); Red Blood Cells 3.82 10^6/uL (4.0-5.20); Red Cell Distribution Width 14.7 % (11.8-14.3); White Blood Cell 7.3 10^3/uL (4.4-10.8)
[2021-09-16 06:16] LABS: Albumin 2.8 g/dL (3.4-5.0); Calcium 8.8 mg/dL (8.5-10.1); Potassium 3.6 mmol/L (3.5-5.1)
[2021-09-16 06:19] LABS: BUN/Creatinine Ratio 21.5; Magnesium 2.1 mg/dL (1.6-2.6)
[2021-09-16 06:20] LABS: INR 1.05 (0.9-1.15)
[2021-09-16 06:22] LABS: Bilirubin, Total 0.2 mg/dL (0.2-1.0); Phosphorus 4.4 mg/dL (2.5-4.90); Total Protein 6.5 g/dL (6.4-8.2)
[2021-09-16] MEDS: MECLIZINE HCL 25 MG TAB PO SCH ×3 (06:41→22:06)
[2021-09-16] MEDS: InsuLIN REG 1unit/0.01ml Soln (100units/ml) SC SCH ×4 (06:41→22:00)
[2021-09-16] MEDS: ACCU-CHEK COMFORT CURVE STRIP VI SCH ×4 (06:41→22:07)
[2021-09-16] MEDS: LEVOTHYROXINE SODIUM 50 MCG TAB PO SCH (06:41)
[2021-09-16] MEDS: GABAPENTIN 100 MG CAP PO SCH ×3 (06:41→22:07)
[2021-09-16] MEDS: FUROSEMIDE 20 MG/2 ML VIAL IV SCH (07:17)
[2021-09-16 09:00] VITALS: BP 116/60
[2021-09-16] MEDS: cefTRIAXone 1GM/50ML D5W 50 ML IV SCH (10:56)
[2021-09-16] MEDS: PANTOPRAZOLE 40 MG/10 ML VIAL INJ IV SCH (10:57)
[2021-09-16] MEDS: BENAZEPRIL HCL 10 MG TAB PO SCH (10:58)
[2021-09-16] MEDS: HYDROcodone-ACET 5/325MG TAB PO PRN (10:59)
[2021-09-16] MEDS: ASPirin 81 mg TAB PO SCH (10:59)
[2021-09-16] MEDS: ALLOPURINOL 100 MG TAB PO SCH (11:00)
[2021-09-16] MEDS: ISOSORBIDE MONONITRATE 20 MG TAB PO SCH ×2 (11:01→22:06)
[2021-09-16] MEDS: CLOPIDOGREL BISULFATE 75 MG TAB PO SCH (11:01)
[2021-09-16] MEDS: OXYBUTYNIN CHL 5 MG TAB PO SCH ×2 (11:01→22:06)
[2021-09-16] MEDS: POTASSIUM CHL 20 Meq TABLET PO SCH ×2 (11:02→22:07)
[2021-09-16] MEDS: levETIRAcetam 500 MG TAB PO SCH ×2 (11:02→22:04)
[2021-09-16] MEDS: TOPIRAMATE 100 MG TAB PO SCH ×2 (11:04→22:05)
[2021-09-16] MEDS: hydrOXYchloroQUINE SULFATE 200 MG TAB PO SCH ×2 (11:04→22:07)
[2021-09-16] MEDS: ENOXAPARIN SOD 40 MG/0.4 ML SYRINGE SC SCH (11:05)
[2021-09-16] MEDS ORDERED: SODIUM CHLORIDE 0.9% 250 ML IV ONE (12:15)
[2021-09-16 12:59] VITALS: BP 95/57
[2021-09-16 16:47] VITALS: BP_SYST 104; BP_SYST 118; BP_DIAS 54; BP_DIAS 90
[2021-09-16 22:00] VITALS: BP 124/57
[2021-09-16] MEDS: ATORVASTATIN 20 MG TAB PO SCH (22:04)
[2021-09-17] MEDS: ALBUTEROL SULF 2.5 MG/0.5ML(0.5%) NEB SOLN NEB PRN ×4 (02:40→22:18)
[2021-09-17] MEDS: IPRATROPIUM BROM 0.5 MG/2.5ML INH SOL NEB SCH ×6 (02:40→22:18)
[2021-09-17 05:00] VITALS: BP 114/55
[2021-09-17] MEDS ORDERED: SODIUM CHLORIDE 0.9% 250 ML IV ONE (05:00)
[2021-09-17] MEDS: BUDESONIDE (INHALATION) 0.5 MG/2 ML NEB NEB SCH ×2 (06:31→22:20)
[2021-09-17] MEDS: MECLIZINE HCL 25 MG TAB PO SCH ×3 (06:50→21:56)
[2021-09-17] MEDS: InsuLIN REG 1unit/0.01ml Soln (100units/ml) SC SCH ×4 (06:51→21:58)
[2021-09-17] MEDS: LEVOTHYROXINE SODIUM 50 MCG TAB PO SCH (06:51)
[2021-09-17] MEDS: ACCU-CHEK COMFORT CURVE STRIP VI SCH ×4 (06:51→21:58)
[2021-09-17] MEDS: GABAPENTIN 100 MG CAP PO SCH ×2 (06:51→15:05)
[2021-09-17 06:53] LABS: Basophils # (auto) 0 10 ^3/uL (0-0.2); Basophils % (auto) 0.5 % (0.0-2.0); Eosinophils # (auto) 0.1 10 ^3/uL (0-0.8); Eosinophils % (auto) 1.6 % (0.0-7.0); Hematocrit 33.6 % (36.0-46.0); Hemoglobin 10.8 g/dL (12.2-16.2); Lymphocytes # (auto) 1.5 10 ^3/uL (0.4-5.4); Lymphocytes % (auto) 16.7 % (10.0-50.0); Mean Corpuscular Hemoglobin 27.9 pg (28.0-32.0); Mean Corpuscular Hgb Conc. 32.1 g/dL (32.0-36.0); Mean Corpuscular Volume 86.9 fL (80.0-100.0); Monocytes # (auto) 0.5 10 ^3/uL (0-1.3); Monocytes % (auto) 5.3 % (0.0-12.0); Neutrophils # (auto) 6.6 10 ^3/uL (1.6-8.6); Neutrophils % (auto) 75.9 % (37.0-80.0); Red Blood Cells 3.87 10^6/uL (4.0-5.20); Red Cell Distribution Width 15.2 % (11.8-14.3); White Blood Cell 8.7 10^3/uL (4.4-10.8)
[2021-09-17 07:08] LABS: Potassium 4.3 mmol/L (3.5-5.1)
[2021-09-17 07:11] LABS: BUN/Creatinine Ratio 28.6
[2021-09-17 08:00] VITALS: BP_SYST 126; BP_SYST 128; BP_SYST 98; BP_DIAS 32; BP_DIAS 44; BP_DIAS 50
[2021-09-17] MEDS ORDERED: LORazepam 2MG/ML-1ML VIAL IV PRN (10:00)
[2021-09-17] MEDS: PANTOPRAZOLE 40 MG/10 ML VIAL INJ IV SCH (10:06)
[2021-09-17] MEDS: ASPirin 81 mg TAB PO SCH (10:06)
[2021-09-17] MEDS: cefTRIAXone 1GM/50ML D5W 50 ML IV SCH (10:06)
[2021-09-17] MEDS: ISOSORBIDE MONONITRATE 20 MG TAB PO SCH ×2 (10:08→21:57)
[2021-09-17] MEDS: ENOXAPARIN SOD 40 MG/0.4 ML SYRINGE SC SCH (10:09)
[2021-09-17] MEDS: POTASSIUM CHL 20 Meq TABLET PO SCH ×2 (10:09→21:55)
[2021-09-17] MEDS: levETIRAcetam 500 MG TAB PO SCH ×2 (10:09→21:56)
[2021-09-17] MEDS: CLOPIDOGREL BISULFATE 75 MG TAB PO SCH (10:09)
[2021-09-17] MEDS: ALLOPURINOL 100 MG TAB PO SCH (10:10)
[2021-09-17] MEDS: OXYBUTYNIN CHL 5 MG TAB PO SCH ×2 (10:10→21:55)
[2021-09-17] MEDS: TOPIRAMATE 100 MG TAB PO SCH ×2 (10:11→21:58)
[2021-09-17] MEDS: hydrOXYchloroQUINE SULFATE 200 MG TAB PO SCH ×2 (10:12→21:56)
[2021-09-17] MEDS ORDERED: FURO1TAB33 PO (11:11)
[2021-09-17] MEDS ORDERED: LEVE100020 PO (11:13)
[2021-09-17 12:00] VITALS: BP_SYST 117; BP_SYST 122; BP_SYST 130; BP_DIAS 52; BP_DIAS 55; BP_DIAS 56
[2021-09-17] MEDS: HYDROcodone-ACET 5/325MG TAB PO PRN (15:05)
[2021-09-17] MEDS ORDERED: hydrALAZINE HCL 20 MG/ML VL IV PRN (15:30)
[2021-09-17 16:00] VITALS: BP_SYST 124; BP_SYST 159; BP_SYST 161; BP_DIAS 66; BP_DIAS 75; BP_DIAS 77
[2021-09-17 21:40] VITALS: BP 110/42
[2021-09-17] MEDS: ATORVASTATIN 20 MG TAB PO SCH (21:54)
[2021-09-17 22:00] VITALS: BP_SYST 110; BP_SYST 117; BP_SYST 96; BP_DIAS 42; BP_DIAS 57
[2021-09-18] VITALS (8 sets, daily range): BP systolic 87–181; BP diastolic 41–93
[2021-09-18] MEDS: IPRATROPIUM BROM 0.5 MG/2.5ML INH SOL NEB SCH ×4 (02:00→13:39)
[2021-09-18] MEDS: MECLIZINE HCL 25 MG TAB PO SCH ×2 (06:53→15:13)
[2021-09-18] MEDS: LEVOTHYROXINE SODIUM 50 MCG TAB PO SCH (06:54)
[2021-09-18] MEDS: ACCU-CHEK COMFORT CURVE STRIP VI SCH ×3 (06:55→17:00)
[2021-09-18] MEDS: InsuLIN REG 1unit/0.01ml Soln (100units/ml) SC SCH ×3 (06:55→17:00)
[2021-09-18] MEDS: BUDESONIDE (INHALATION) 0.5 MG/2 ML NEB NEB SCH (09:19)
[2021-09-18] MEDS ORDERED: GABAPENTIN 100 MG CAP PO SCH (10:00)
[2021-09-18] MEDS: cefTRIAXone 1GM/50ML D5W 50 ML IV SCH (10:29)
[2021-09-18] MEDS: ENOXAPARIN SOD 40 MG/0.4 ML SYRINGE SC SCH (10:29)
[2021-09-18] MEDS: PANTOPRAZOLE 40 MG/10 ML VIAL INJ IV SCH (10:29)
[2021-09-18] MEDS: ASPirin 81 mg TAB PO SCH (10:30)
[2021-09-18] MEDS: POTASSIUM CHL 20 Meq TABLET PO SCH (10:31)
[2021-09-18] MEDS: ISOSORBIDE MONONITRATE 20 MG TAB PO SCH (10:31)
[2021-09-18] MEDS: CLOPIDOGREL BISULFATE 75 MG TAB PO SCH (10:31)
[2021-09-18] MEDS: OXYBUTYNIN CHL 5 MG TAB PO SCH (10:31)
[2021-09-18] MEDS: hydrOXYchloroQUINE SULFATE 200 MG TAB PO SCH (10:33)
[2021-09-18] MEDS: ALLOPURINOL 100 MG TAB PO SCH (10:33)
[2021-09-18] MEDS: TOPIRAMATE 100 MG TAB PO SCH (10:33)
[2021-09-18] MEDS: levETIRAcetam 500 MG TAB PO SCH (10:34)
[2021-09-18] MEDS ORDERED: POLYETHYLENE GLYCOL 17 GM PWDR PO ONE ×2 (11:45→12:00)
[2021-09-18] MEDS ORDERED: DOCU100C10 PO (11:50)
[2021-09-18] MEDS: HYDROcodone-ACET 5/325MG TAB PO PRN (15:14)
== END 2021-09-18 17:35 | disposition home health service (06) | DRG 683 ==
LOC: EDBD 12:45 → ER 12:45 → TELE-CENTR 18:59
PROVIDERS: ADMIT Hospitalist; ATTEND Internal Medicine
DX: N17.9 Acute kidney failure, unspecified (principal); I13.0 Hypertensive heart and chronic kidney disease with heart failure and stage 1 through stage 4 chronic kidney disease, or unspecified chronic kidney disease; N39.0 Urinary tract infection, site not specified; E03.9 Hypothyroidism, unspecified; E11.22 Type 2 diabetes mellitus with diabetic chronic kidney disease; E11.42 Type 2 diabetes mellitus with diabetic polyneuropathy; E11.65 Type 2 diabetes mellitus with hyperglycemia; Z20.822 Contact with and (suspected) exposure to COVID-19; E66.01 Morbid (severe) obesity due to excess calories; F12.90 Cannabis use, unspecified, uncomplicated; E78.5 Hyperlipidemia, unspecified; F17.200 Nicotine dependence, unspecified, uncomplicated; G40.909 Epilepsy, unspecified, not intractable, without status epilepticus; G89.29 Other chronic pain; I27.9 Pulmonary heart disease, unspecified; I25.5 Ischemic cardiomyopathy; M1A.9XX0 Chronic gout, unspecified, without tophus (tophi); F32.9 Major depressive disorder, single episode, unspecified; I25.10 Atherosclerotic heart disease of native coronary artery without angina pectoris; K59.00 Constipation, unspecified; M19.90 Unspecified osteoarthritis, unspecified site; M79.7 Fibromyalgia; N18.32 Chronic kidney disease, stage 3b; R32 Unspecified urinary incontinence; T50.2X5A Adverse effect of carbonic-anhydrase inhibitors, benzothiadiazides and other diuretics, initial encounter; I25.2 Old myocardial infarction; Y92.89 Other specified places as the place of occurrence of the external cause; Z79.02 Long term (current) use of antithrombotics/antiplatelets; Z79.51 Long term (current) use of inhaled steroids; Z79.899 Other long term (current) drug therapy; Z82.49 Family history of ischemic heart disease and other diseases of the circulatory system; Z83.3 Family history of diabetes mellitus; Z90.710 Acquired absence of both cervix and uterus; Z95.5 Presence of coronary angioplasty implant and graft; Z68.39 Body mass index [BMI] 39.0-39.9, adult; Z88.8 Allergy status to other drugs, medicaments and biological substances; I50.9 Heart failure, unspecified; J44.9 Chronic obstructive pulmonary disease, unspecified; R55 Syncope and collapse
CPT/HCPCS: 36415; 70450; 70551; 71045; 76775; 80048; 80053; 80061; 80307; 81001; 82962; 83516; 83605; 83735; 83880; 83970; 84100; 84443; 84484; 84550; 85025; 85379; 85610; 85652; 85730; 86141; 86160; 86225; 86235; 87040; 87086; 93005; 93970; 94640; 95819; 97110; 97116; 97163; 97530; 99291; C9113; G0378; J0696; J1815; J2405